=== PATIENT | male | born 1945 | race Caucasian/White ===

== ENCOUNTER 2021-08-02 15:31 | Emergency (ER) | payer MEDICARE, OTHER ==
[2021-08-02 17:01] LABS: ANION GAP 12.6 mmol/L (5-15); CHLORIDE,CL 108 mmol/L (98-107); SODIUM,NA 142 mmol/L (136-145)
--- NOTE | 2021-08-02 17:03 | CR ---
[id number] RAD/RAD Chest PA And Lateral EXAM: RAD Chest PA And Lateral INDICATION: CP. COMPARISON: 2014 DISCUSSION/IMPRESSION: Cardiomediastinal silhouette is normal in size and contour. Lungs are clear. No pleural effusion or pneumothorax. Rylan Khan MD 08/02/21 0892 Thank you for allowing us to participate in the care of your patient.
[2021-08-02] MEDS ORDERED: Nitroglycerin 0.4 MG Tab.SL SL PRN (17:36)
--- NOTE | 2021-08-02 18:14 | EDM.PDOC ---
ED HPI GENERAL MEDICAL PROBLEM - General Chief Complaint: Chest Pain Stated Complaint: CHEST DISCOMFORT Time Seen by Provider: 08/02/21 15:45 Source of Information: Reports: Patient History Limitations: Reports: No Limitations - History of Present Illness INITIAL COMMENTS - FREE TEXT/NARRATIVE: Mr. Jiménez is a very pleasant 75-year-old gentleman from [place] who is been experiencing 2 months of exertional chest pain. He reports he has recurrence and predictable onset of mild burning achiness across his chest line starting on the left side radiating to his right chest just below the nipple line. This occurs when he is exerting himself such as mowing the yard with a push mower. Walking for more blocks or lifting boxes while at work. His symptoms usually last less than 1 minute. He does not take anything for the chest pain. He is not on any blood thinners. He does have a history of hypertension and erectile dysfunction. No evidence of high cholesterol or on medication for cholesterol. 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 Symptoms started at 2:00. This time they lasted about 5 minutes. He reports the intensity of the chest pain was worse than previous episodes. He rested and the symptoms went away. He figured he better get this checked out and evaluated. He denies any significant family history of heart disease or prior ID. He is a prior smoker smoked a half a pack a day for about 20 years. He quit in 1985. Onset: Today, Gradual, Other (Symptoms been going on for approximately 2 months) Onset Date: 08/02/21 Onset Time: 14:00 Duration: Minutes:, Recurring, Resolved Prior to Arrival Location: Reports: Chest (Bilateral chest pain just below the nipple line) Quality: Reports: Ache, Burning Severity: Moderate Improves with: Reports: Rest Worsens with: Reports: Other (Worse with exertion which include carrying of boxes at work, mowing the yard with a push mower, walking) Context: Reports: Activity, Exercise Associated Symptoms: Reports: Chest Pain. Denies: Diaphoresis, Nausea/Vomiting, Shortness of Breath, Syncope, Weakness - Related Data Allergies Allergy/AdvReac Type Severity Reaction Status Date / Time codeine Allergy Cannot Verified 08/02/21 16:09 Remember Home Meds: Home Meds Finasteride [Proscar] 5 mg PO DAILY 08/02/21 [History] Levothyroxine [Synthroid] 50 mcg PO ACBREAKFAST 08/02/21 [History] Tamsulosin [Tamsulosin 24 Hr] 0.4 mg PO DAILY 08/02/21 [History] atenoloL [Atenolol] 75 mg PO DAILY 08/02/21 [History] hydroCHLOROthiazide [Hydrochlorothiazide] 12.5 mg PO DAILY 08/02/21 [History] Social & Family History - Tobacco Use Tobacco Use Status *Q: Former Tobacco User Used Tobacco, but Quit: Yes Month/Year Tobacco Last Used: 10 - Recreational Drug Use Recreational Drug Use: No ED ROS GENERAL - Review of Systems Review Of Systems: See Below Constitutional: Denies: Fever, Weakness, Fatigue, Night Sweats, Diaphoresis, Decreased Appetite HEENT: Reports: No Symptoms Respiratory: Denies: Shortness of Breath, Cough Cardiovascular: Reports: Chest Pain, Blood Pressure Problem, Dyspnea on Exertio n. Denies: Edema, Lightheadedness, Orthopnea, Palpitations, PND, Syncope Endocrine: Reports: No Symptoms GI/Abdominal: Denies: Abdominal Pain, Diarrhea, Nausea, Vomiting : Reports: No Symptoms Musculoskeletal: Denies: Neck Pain, Shoulder Pain, Arm Pain, Back Pain Skin: Denies: Cyanosis, Diaphoresis Neurological: Denies: Confusion, Dizziness, Headache, Numbness, Paresthesia, Trouble Speaking, Difficulty Walking, Weakness, Change in Speech, Gait Disturbance Psychiatric: Reports: Anxiety Hematologic/Lymphatic: Reports: No Symptoms Immunologic: Reports: No Symptoms ED EXAM, GENERAL - Physical Exam Exam: See Below Exam Limited By: No Limitations General Appearance: Alert, WD/WN, No Apparent Distress Eye Exam: Bilateral Eye: EOMI Ears: Hearing Grossly Normal Nose: Normal Inspection Throat/Mouth: Normal Inspection, Normal Oropharynx, Normal Voice, No Airway Compromise Head: Atraumatic, Normocephalic Neck: Normal Inspection, Supple, Non-Tender, Full Range of Motion. No: Carotid Bruit Respiratory/Chest: No Respiratory Distress, Lungs Clear, Normal Breath Sounds, No Accessory Muscle Use, Chest Non-Tender Cardiovascular: Normal Peripheral Pulses, Regular Rate, Rhythm, No Murmur Peripheral Pulses: 2+: Carotid (L), Carotid (R), Radial (L), Radial (R), Dorsalis Pedis (L), Dorsalis Pedis (R) GI/Abdominal: Normal Bowel Sounds, Soft, Non-Tender, No Abnormal Bruit Back Exam: Normal Inspection, Full Range of Motion Extremities: Normal Inspection, Normal Range of Motion, Non-Tender, No Pedal Edema, Normal Capillary Refill Neurological: Alert, Oriented, CN II-XII Intact, No Motor/Sensory Deficits Psychiatric: Normal Affect, Normal Mood Skin Exam: Warm, Dry, Intact, Normal Color, No Rash Lymphatic: No Adenopathy #1 Interpretation EKG Date: 08/02/21 Time: 16:08 Rhythm: NSR Rate (Beats/Min): 84 [place]: Normal P-Wave: Present QRS: Normal ST-T: Normal QT: Normal Comparison: NA - No Prior EKG Course - Vital Signs Last Recorded V/S: Last Vital Signs Temp 98.2 F 08/02/21 16:13 Pulse 88 08/02/21 16:13 Resp 18 08/02/21 16:13 BP 214/119 H 08/02/21 16:13 Pulse Ox 98 08/02/21 16:13 - Orders/Labs/Meds Orders: Active Orders 24 hr Category Date Time Status EKG Documentation Completion [RC] ASDIRECTED Care 08/02/21 16:25 Active Nitroglycerin [Nitrostat] Med 08/02/21 17:36 Active 0.4 mg SL Q5M PRN EKG 12 Lead [EK] Stat Ther 08/02/21 16:24 Ordered Medication Orders Nitroglycerin (Nitroglycerin 0.4 Mg Tab.Sl) 0.4 mg SL Q5M PRN PRN Reason: Chest Pain Labs: Laboratory Tests 08/02/21 08/02/21 Range/Units 16:03 16:03 WBC 5.95 (5.00-10.00) 10^3/uL RBC 4.82 (4.50-6.00) 10^6/uL Hgb 16.2 (13.0-17.0) g/dL Hct 44.3 (40.0-52.0) % MCV 91.9 (82.0-92.0) fL MCH 33.6 H (27.0-31.0) pg MCHC 36.6 H (32.0-36.0) g/dL RDW 13.1 (11.5-14.5) % Plt Count 134 L (150-400) 10^3/uL MPV 10.1 (7.4-10.4) fL Immature Gran % (Auto) 0.2 (0.0-5.0) % Neut % (Auto) 71.7 H (50.0-70.0) % Lymph % (Auto) 19.7 L (20.0-40.0) % [place] % (Auto) 7.4 (2.0-8.0) % Eos % (Auto) 0.7 L (1.0-3.0) % Baso % (Auto) 0.3 (0.0-1.0) % Neut # (Auto) 4.27 (2.50-7.00) 10^3/uL Lymph # (Auto) 1.17 (1.00-4.00) 10^3/uL [place] # (Auto) 0.44 (0.10-0.80) 10^3/uL Eos # (Auto) 0.04 L (0.10-0.30) 10^3/uL Baso # (Auto) 0.02 (0.00-0.10) 10^3/uL Immature Gran # (Auto) 0.01 (0.00-0.50) 10^3/uL Sodium 142 (136-145) mmol/L Potassium 3.7 (3.5-5.1) mmol/L Chloride 108 H (98-107) mmol/L Carbon Dioxide 25.1 (21.0-32.0) mmol/L Anion Gap 12.6 (5-15) mmol/L BUN 17 (7-18) mg/dL Creatinine 0.85 (0.51-1.17) mg/dL Est Cr Clr Drug Dosing 75.09 mL/min Estimated GFR (MDRD) > 60 mL/min Glucose 93 (70-140) mg/dL Calcium 8.8 (8.7-10.3) mg/dL Total Bilirubin 0.9 (0.2-1.0) mg/dL AST 33 (15-37) U/L ALT 43 (14-63) U/L Alkaline Phosphatase 85 (46-116) U/L Troponin I High Sens 71.200 (0-76.000) pg/mL Total Protein 7.3 (6.4-8.2) g/dL Albumin 3.77 (3.40-5.00) g/dL Meds: Medications Generic Name Dose Route Start Last Admin Trade Name Freq PRN Reason Stop Dose Admin Nitroglycerin 0.4 mg 08/02/21 17:36 Nitroglycerin 0.4 Mg Tab.Sl SL Q5M PRN Chest Pain - Re-Assessments/Exams Free Text/Narrative Re-Assessment/Exam: 08/02/21 17:20 Patient has not had any recurrence of chest pain or symptoms at rest. His blood pressure is gone down nicely. He is not experience any nausea or vomiting. He is not experience any diaphoresis. He is nontoxic-appearing Departure - Departure Time of Disposition: 18:00 Disposition: Home, Self-Care 01 Condition: Good Clinical Impression: Acute coronary syndrome, Stable angina Instructions: Angina Referrals: Melinda Hooper MD [Primary Care Provider] - Forms: ED Department Discharge Care Plan Goals: 1. Aspirin 81 mg daily 2. Nitroglycerin 0.4 mg sublingual to be taken if experiencing chest pain. This may be repeated in 5 minutes. If chest pain continues after 2 doses you should call ambulance for further evaluation and return to the emergency room. 3. You should avoid all activities that cause exertional chest pain. 4. Follow-up with your primary care in 48 hours. Cardiology consult and stress test recommended. 5. Return to the emergency room if chest pain is not relieved with an several minutes of taking nitroglycerin or if chest pain continues with radiation into the arms, back, chest, jaw, neck or abdominal area. If you develop profuse sweating and shortness of breath should also return to the emergency room. Sepsis Event Note (ED) - Evaluation Sepsis Screening Result: No Definite Risk - Focused Exam Vital Signs: Vital Signs Temp Pulse Resp BP Pulse Ox 08/02/21 16:13 98.2 F 88 18 214/119 H 98 - My Orders Last 24 Hours: My Active Orders 08/02/21 16:24 EKG 12 Lead [EK] Stat 08/02/21 16:25 EKG Documentation Completion [RC] ASDIRECTED 08/02/21 17:36 Nitroglycerin [Nitrostat] 0.4 mg SL Q5M PRN - Assessment/Plan Last 24 Hours: My Active Orders 08/02/21 16:24 EKG 12 Lead [EK] Stat 08/02/21 16:25 EKG Documentation Completion [RC] ASDIRECTED 08/02/21 17:36 Nitroglycerin [Nitrostat] 0.4 mg SL Q5M PRN Assessment:: 1. Acute coronary syndrome: Stable angina Plan: 1. Aspirin 81 mg daily 2. Nitroglycerin 0.4 mg sublingual to be taken if experiencing chest pain. This may be repeated in 5 minutes. If chest pain continues after 2 doses you should call ambulance for further evaluation and return to the emergency room. 3. You should avoid all activities that cause exertional chest pain. 4. Follow-up with your primary care in 48 hours. Cardiology consult and stress test recommended. 5. Return to the emergency room if chest pain is not relieved with an several minutes of taking nitroglycerin or if chest pain continues with radiation into the arms, back, chest, jaw, neck or abdominal area. If you develop profuse sweating and shortness of breath should also return to the emergency room.
[2021-08-02] MEDS ORDERED: Aspirin 81 MG Tab.Chew PO ONE (19:19)
[2021-08-03] MEDS ORDERED: Aspirin 81 MG Tab.Chew ONE (04:26)
== END 2021-08-02 18:05 | disposition home or self-care (01) ==
LOC: KA.ED 15:31
DX: I24.9 Acute ischemic heart disease, unspecified (principal); Z87.891 Personal history of nicotine dependence; Z88.5 Allergy status to narcotic agent; Z79.899 Other long term (current) drug therapy
CPT/HCPCS: 36415; 71046; 80053; 84484; 85025; 93005; 99284; 99285-25; A9270-GY

== ENCOUNTER 2024-10-19 14:47 | Emergency (ER) | payer MEDICARE, OTHER ==
[2024-10-19] MEDS ORDERED: Sodium Chloride 0.9% 10 ML Syringe FLUSH PRN (15:08)
[2024-10-19 15:14] LABS: BASOPHILS ABSOLUTE AUTO 0.02 10^3/uL (0.00-0.10); BASOPHILS PERCENT AUTO 0.3 % (0.0-1.0); EOSINOPHILS ABSOLUTE AUTO 0.11 10^3/uL (0.10-0.30); EOSINOPHILS PERCENT AUTO 1.5 % (1.0-3.0); HEMATOCRIT 48.9 % (40.0-52.0); HEMOGLOBIN 17.7 g/dL (13.0-17.0); IMMATURE GRAN ABSOLUTE AUTO 0.01 10^3/uL (0.00-0.50); IMMATURE GRAN PERCENT AUTO 0.1 % (0.0-5.0); LYMPHOCYTES ABSOLUTE AUTO 1.86 10^3/uL (1.00-4.00); LYMPHOCYTES PERCENT AUTO 24.6 % (20.0-40.0); MEAN CORPUSCULAR HEMOGLOBIN 32.6 pg (27.0-31.0); MEAN CORPUSCULAR HGB CONC 36.2 g/dL (32.0-36.0); MEAN CORPUSCULAR VOLUME 90.1 fL (82.0-92.0); MEAN PLATELET VOLUME 9.7 fL (7.4-10.4); MONOCYTES ABSOLUTE AUTO 0.51 10^3/uL (0.10-0.80); MONOCYTES PERCENT AUTO 6.7 % (2.0-8.0); NEUTROPHILS ABSOLUTE AUTO 5.06 10^3/uL (2.50-7.00); NEUTROPHILS PERCENT AUTO 66.8 % (50.0-70.0); PLATELET COUNT,PLT 148 10^3/uL (150-400); RED BLOOD CELL COUNT 5.43 10^6/uL (4.50-6.00); RED CELL DISTRIBUTION WIDTH 12.9 % (11.5-14.5); WHITE BLOOD CELL COUNT,WBC 7.57 10^3/uL (5.00-10.00)
[2024-10-19] MEDS: Aspirin 81 MG Tab.Chew PO ONE (15:16)
[2024-10-19 15:17] LABS: ALBUMIN 4.09 g/dL (3.40-5.00); ANION GAP 13.3 mmol/L (5-15); BILIRUBIN TOTAL 2.1 mg/dL (0.2-1.0); CALCIUM 8.8 mg/dL (8.7-10.3); CARBON DIOXIDE,CO2 28.3 mmol/L (21.0-32.0); CREATININE 1.1 mg/dL (0.51-1.17); EST CRCL DRUG DOSING (CG) 52.68 mL/min; MAGNESIUM 1.8 mg/dL (1.8-2.4); POTASSIUM,K 3.6 mmol/L (3.5-5.1); PROTEIN TOTAL,TP 7.4 g/dL (6.4-8.2)
[2024-10-19] MEDS: Nitroglycerin 2% Oint 1 GM UD Packet TOP ONE (15:37)
[2024-10-19] MEDS: Heparin Sodium 5,000 Units/ML Vial IVPUSH ONE (15:37)
[2024-10-19] MEDS: Heparin Sodium/D5W 250 ML IV SCH (15:38)
[2024-10-19] MEDS: Nitroglycerin 0.4 MG Tab.SL SL PRN (15:45)
== END 2024-10-19 17:12 ==
LOC: KA.ED 14:47
DX: I21.4 Non-ST elevation (NSTEMI) myocardial infarction (principal); I10 Essential (primary) hypertension; Z79.890 Hormone replacement therapy; Z79.899 Other long term (current) drug therapy; Z88.5 Allergy status to narcotic agent
CPT/HCPCS: 71045; 80053; 83735; 83880; 84484; 85025; 96365; 96366; 99285-25; A9270-GY; J1644

== ENCOUNTER 2025-03-29 04:20 | Emergency (ER) | payer MEDICARE, OTHER ==
[2025-03-29] MEDS ORDERED: Sodium Chloride 0.9% 10 ML Syringe FLUSH PRN (04:55)
[2025-03-29 05:03] LABS: BASOPHILS ABSOLUTE AUTO 0.02 10^3/uL (0.00-0.10); BASOPHILS PERCENT AUTO 0.2 % (0.0-1.0); EOSINOPHILS ABSOLUTE AUTO 0.03 10^3/uL (0.10-0.30); EOSINOPHILS PERCENT AUTO 0.3 % (1.0-3.0); HEMATOCRIT 43.5 % (40.0-52.0); HEMOGLOBIN 15.2 g/dL (13.0-17.0); IMMATURE GRAN ABSOLUTE AUTO 0.03 10^3/uL (0.00-0.04); IMMATURE GRAN PERCENT AUTO 0.3 % (0.0-0.4); LYMPHOCYTES ABSOLUTE AUTO 0.89 10^3/uL (1.00-4.00); LYMPHOCYTES PERCENT AUTO 8.5 % (20.0-40.0); MEAN CORPUSCULAR HEMOGLOBIN 31.3 pg (27.0-31.0); MEAN CORPUSCULAR HGB CONC 34.9 g/dL (32.0-36.0); MEAN CORPUSCULAR VOLUME 89.5 fL (82.0-92.0); MEAN PLATELET VOLUME 9.7 fL (7.4-10.4); MONOCYTES ABSOLUTE AUTO 0.66 10^3/uL (0.10-0.80); MONOCYTES PERCENT AUTO 6.3 % (2.0-8.0); NEUTROPHILS ABSOLUTE AUTO 8.78 10^3/uL (2.50-7.00); NEUTROPHILS PERCENT AUTO 84.4 % (50.0-70.0); PLATELET COUNT,PLT 137 10^3/uL (150-400); RED BLOOD CELL COUNT 4.86 10^6/uL (4.50-6.00); RED CELL DISTRIBUTION WIDTH 13.5 % (11.5-14.5); WHITE BLOOD CELL COUNT,WBC 10.41 10^3/uL (5.00-10.00)
[2025-03-29 05:18] LABS: ALBUMIN 3.93 g/dL (3.40-5.00); BILIRUBIN TOTAL 1.9 mg/dL (0.2-1.0); CALCIUM 8.9 mg/dL (8.7-10.3); CARBON DIOXIDE,CO2 25.7 mmol/L (21.0-32.0); CREATININE 1.03 mg/dL (0.51-1.17); EST CRCL DRUG DOSING (CG) 56.26 mL/min; POTASSIUM,K 3.7 mmol/L (3.5-5.1); PROTEIN TOTAL,TP 7.3 g/dL (6.4-8.2)
[2025-03-29] MEDS: HYDROmorphone 1 MG/ML Syringe IVPUSH ONE ×2 (05:18→14:44)
[2025-03-29] MEDS: Ondansetron 4 MG/2 ML SDV IVPUSH ONE (05:22)
[2025-03-29] MEDS: Ketorolac 30 MG/ML SDV IVPUSH ONE ×2 (05:59→12:04)
[2025-03-29] MEDS: Sodium Chloride 0.9% 50 ML IV SCH (07:00)
[2025-03-29] MEDS: Iopamidol 755 Mg/ML 100 ML Bottle IV ONE (07:00)
[2025-03-29] MEDS: Lactated Ringers 1,000 ML IV SCH (08:27)
[2025-03-29] MEDS: Morphine 2 MG/ML SYRINGE IVPUSH ONE ×2 (09:09→11:08)
[2025-03-29] MEDS: Lactated Ringers 1,000 ML ONE (09:09)
[2025-03-29] MEDS: Tamsulosin 0.4 MG Cap.ER PO ONE (09:38)
[2025-03-29] MEDS: Levothyroxine 50 MCG Tab PO ONE (09:38)
[2025-03-29] MEDS: atorvaSTATin 40 MG Tab PO ONE (09:39)
[2025-03-29] MEDS: Finasteride 5 MG Tab PO ONE (09:39)
[2025-03-29] MEDS: Metoprolol Tartrate 25 MG Tab PO ONE (09:40)
[2025-03-29 13:52] LABS: BASOPHILS ABSOLUTE AUTO 0.02 10^3/uL (0.00-0.10); BASOPHILS PERCENT AUTO 0.2 % (0.0-1.0); EOSINOPHILS ABSOLUTE AUTO 0.01 10^3/uL (0.10-0.30); EOSINOPHILS PERCENT AUTO 0.1 % (1.0-3.0); HEMATOCRIT 46.2 % (40.0-52.0); IMMATURE GRAN ABSOLUTE AUTO 0.03 10^3/uL (0.00-0.04); IMMATURE GRAN PERCENT AUTO 0.2 % (0.0-0.4); LYMPHOCYTES ABSOLUTE AUTO 0.56 10^3/uL (1.00-4.00); LYMPHOCYTES PERCENT AUTO 4.3 % (20.0-40.0); MEAN CORPUSCULAR HEMOGLOBIN 31.3 pg (27.0-31.0); MEAN CORPUSCULAR HGB CONC 34.6 g/dL (32.0-36.0); MEAN CORPUSCULAR VOLUME 90.2 fL (82.0-92.0); MEAN PLATELET VOLUME 9.6 fL (7.4-10.4); MONOCYTES ABSOLUTE AUTO 1.06 10^3/uL (0.10-0.80); MONOCYTES PERCENT AUTO 8.1 % (2.0-8.0); NEUTROPHILS ABSOLUTE AUTO 11.48 10^3/uL (2.50-7.00); NEUTROPHILS PERCENT AUTO 87.1 % (50.0-70.0); PLATELET COUNT,PLT 131 10^3/uL (150-400); RED BLOOD CELL COUNT 5.12 10^6/uL (4.50-6.00); RED CELL DISTRIBUTION WIDTH 13.6 % (11.5-14.5); WHITE BLOOD CELL COUNT,WBC 13.16 10^3/uL (5.00-10.00)
[2025-03-29 14:08] LABS: ALBUMIN 3.83 g/dL (3.40-5.00); ANION GAP 11.6 mmol/L (5-15); BILIRUBIN TOTAL 2.5 mg/dL (0.2-1.0); CALCIUM 9.3 mg/dL (8.7-10.3); CARBON DIOXIDE,CO2 28.7 mmol/L (21.0-32.0); CREATININE 0.91 mg/dL (0.51-1.17); EST CRCL DRUG DOSING (CG) 63.68 mL/min; POTASSIUM,K 3.3 mmol/L (3.5-5.1); PROTEIN TOTAL,TP 7.2 g/dL (6.4-8.2)
[2025-03-29] MEDS: cefTRIAXone 1 GM Vial IVPUSH SCH (14:22)
== END 2025-03-29 15:34 ==
LOC: KA.ED 04:20
DX: K81.9 Cholecystitis, unspecified (principal); I10 Essential (primary) hypertension; Z79.899 Other long term (current) drug therapy; Z79.890 Hormone replacement therapy; Z88.5 Allergy status to narcotic agent
CPT/HCPCS: 36415; 71045; 74177; 80053; 83690; 84484; 85025; 96361; 96374; 96375; 96376; 99285-25; A9270-GY; J0696; J1171; J1885; J2270; J2405; J7120; Q9967